=== PATIENT | male | born 1970 | race Caucasian/White ===

== ENCOUNTER 2017-05-18 07:42 | Emergency (ER) | payer OTHER ==
[2017-05-18 07:49] VITALS: BP 139/85
[2017-05-18] MEDS ORDERED: Ibuprofen TAB* 600 MG PO ONE (08:07)
--- NOTE | 2017-05-18 08:12 | UC ---
Cecy Paige Rebecca, scribed for Alvaro Dahl MD on 05/18/17 at 0801 . Back Pain HPI - HPI Summary HPI Summary: Pt is a 47 y/o M who presents to [facility] c/o lumbar back pain. Pain began last night after lifting a large, old television. Currently, pain is severe, ranked 10/10 and characterized as sharp and spasmodic. Pain is discrete to the R lumbar back with radiation to the RLQ and right inguinal region. Had not taken any medication for the pain. Sx aggravated by squatting and sitting, alleviated by nothing. Denies hematuria, dark urine and difficulty urinating. No PMHx back problems. - History of Current Complaint Chief Complaint: UCBackPain Stated Complaint: LOWER ABD/BACK PAIN Hx Obtained From: Patient Onset/Duration: Lasting Days - Started last night, Still Present Severity Initially: Moderate Severity Currently: Severe Pain Intensity: 10 Pain Scale Used: 0-10 Numeric Back Pain: Is Discrete @ - R lumbar back, Radiates To - RLQ and R inguinal region Character: Sharp, Spasmodic Alleviating: Nothing Associated Signs And Symptoms: Positive: Negative - Allergies/Home Medications Allergies/Adverse Reactions: Allergies Allergy/AdvReac Type Severity Reaction Status Date / Time tree nuts Allergy Severe anaphylaxis Uncoded 05/18/17 07:49 PMH/Surg Hx/FS Hx/Imm Hx - Additional Past Medical History Additional PMH: NEGATIVE PMHx back problems Previously Healthy: No Respiratory History: Asthma, Other Other Respiratory History: Allergies - Surgical History Surgical History: None - Family History Known Family History: Positive: Cardiac Disease - Social History Alcohol Use: Occasionally Substance Use Type: None, Marijuana Smoking Status (MU): Light Every Day Tobacco Smoker Amount Used/How Often: 1/2 ppf Household Exposure Type: Cigarettes Review of Systems Constitutional: Negative Skin: Negative Eyes: Negative ENT: Negative Respiratory: Negative Cardiovascular: Negative Gastrointestinal: Negative Genitourinary: Negative Motor: Negative Neurovascular: Negative Musculoskeletal: Other: - R lumbar back pain with radiation to the RLQ and R inguinal region Neurological: Negative Psychological: Negative All Other Systems Reviewed And Are Negative: Yes Physical Exam Triage Information Reviewed: Yes Vital Signs: Initial Vital Signs Temp 98.1 F 05/18/17 07:45 Pulse 98 05/18/17 07:45 Resp 16 05/18/17 07:45 BP 139/85 05/18/17 07:45 Pulse Ox 98 05/18/17 07:45 Vital Signs Reviewed: Yes - Additional Comments The patient is well-nourished in mild acute distress and in mild acute pain. The skin is warm and dry and skin color reflects adequate perfusion. HEENT: The head is normocephalic and atraumatic. The pupils are equal and reactive. The conjunctivae are clear and without drainage. Nares are patent and without drainage. Mouth reveals moist mucous membranes and the throat is without erythema and exudate. The external ears are intact. The ear canals are patent and without drainage. The tympanic membranes are intact. Respiratory: Chest is non-tender. Lungs are clear to auscultation and breath sounds are symmetrical and equal. Cardiovascular: Hear is regular rate and rhythm. There is no murmur or rub auscultated. There is no peripheral edema and pulses are symmetrical and equal. Musculoskeletal: Tenderness over the PSIS and pain over the sciatic notch. No CVA tenderness. Ipsilateral straight leg raising on the right. Extremities are non-tender with full range of motion. There is good capillary refill. Neurological: Patient is alert and oriented to person, place and time. The patient has symmetrical motor strength in all four extremities. Psychiatric: The patient has an appropriate affect and does not exhibit any anxiety or depression. Back Pain Course/Dx - Course Course Of Treatment: Pt is a 47 y/o M who presents to [facility] c/o R lumbar back pain with radiation to the RLQ and R inguinal regions since last night after lifting an old television. Pain is severe, ranked 10/10 and characterized as sharp and spasmodic. Had not taken any medication for the pain. Sx aggravated by squatting and sitting. Denies hematuria, dark urine and difficulty urinating. No PMHx back problems. In the [facility] course he received Motrin. He will be D/C to home with Dx of acute lumbosacral sprain and strain and sciatica with Rx for Saco 5-325, Flexeril and Motrin and a follow up referral. He understands and agrees. Patient medications reviewed this visit. - Differential Dx/Diagnosis Differential Diagnosis/HQI/PQRI: Arthritis, Herniated Disc, Strain, Sprain Provider Diagnoses: Acute lumbosacral sprain and strain. Sciatica Discharge - Discharge Plan Condition: Stable Disposition: HOME Prescriptions: Cyclobenzaprine TAB* [Flexeril 10 MG TAB*] 10 mg PO TID PRN #30 tab PRN Reason: Pain HYDROcodone/ACETAMIN 5-325 MG* [Saco 5-325 TAB*] 1 tab PO Q6H PRN #20 tab MDD 4 PRN Reason: pain Ibuprofen TAB* [Motrin TAB* 600 MG] 600 mg PO Q8H PRN #30 tab PRN Reason: pain Patient Education Materials: Lower Back Exercises (ED), Sciatica (ED) Referrals: [facility] [Outside] - 3 Days The documentation as recorded by the Cecy bellamy Rebecca accurately reflects the service I personally performed and the decisions made by , Alvaro Dahl MD.
== END 2017-05-18 08:15 | disposition home or self-care (01) ==
LOC: UCEAST 07:42
DX: S33.9XXA Sprain of unspecified parts of lumbar spine and pelvis, initial encounter (principal); X50.0XXA Overexertion from strenuous movement or load, initial encounter; Y93.89 Activity, other specified; Y92.9 Unspecified place or not applicable; Y99.9 Unspecified external cause status; Z72.0 Tobacco use
CPT/HCPCS: 99212; A9270-GY; G0463

== ENCOUNTER 2018-07-24 18:10 | Emergency (ER) | payer OTHER ==
[2018-07-24 20:27] LABS: ABS Basophils 0.1 10^3/ul (0-0.2); ABS Eosinophils 0.2 10^3/ul (0-0.6); ABS Lymphocytes 3.1 10^3/ul (1.0-4.8); ABS Monocytes 0.4 10^3/ul (0-0.8); ABS Neutrophils 4.1 10^3/ul (1.5-7.7); ABS Nucleated RBC 0 10^3/ul; Eosinophil % 2.6 % (0-6); Hematocrit 45 % (42-52); Hemoglobin 15.8 g/dl (14.0-18.0); Lymphocyte % 39.3 % (25-47); Mean Corpuscular HGB Conc 35 g/dl (31-36); Mean Corpuscular Hemoglobin 35 pg (27-31); Mean Corpuscular Volume 98 fL (80-94); Mean Platelet Volume 7.2 um3 (7.4-10.4); Nucleated Red Blood Cells % 0; Platelet Count 341 10^3/ul (150-450); Red Blood Count 4.55 10^6/ul (4.00-5.40); Red Cell Distribution Width 13 % (10.5-15)
[2018-07-24 20:43] LABS: EGFR Non-African American 120.4 (>60)
[2018-07-24] MEDS ORDERED: Nicotine Inhaler* 10 MG AMP INH ONE (20:46)
[2018-07-24] MEDS ORDERED: Mouth Piece, Nicotine* 1 EACH CARTRIDGE INH PRN (20:46)
[2018-07-24] MEDS ORDERED: Mouth Piece, Nicotine* 1 EACH CARTRIDGE ONE (20:49)
[2018-07-24 21:22] LABS: Urine Appearance Clear; Urine Blood 1+ (Negative); Urine Color Straw; Urine Ketones Negative (Negative); Urine Protein Negative (Negative); Urine Red Blood Cell Trace(0-2/hpf) (Absent); Urine Specific Gravity 1.005 (1.010-1.030); Urine Urobilinogen Negative (Negative); Urine White Blood Cell Trace(0-5/hpf) (Absent)
--- NOTE | 2018-07-24 21:53 | ED ---
Psychiatric Complaint - HPI Summary HPI Summary: Patient is a 48 y/o M w/ c/o SI BIBA as 941. [employer] officer maya Epstein 122 at [address] Calzada stating that patient had told family members that he was going to jump off of a bridge. Javier Irene, his reported father, had called 911 about patient's statements. He was reported to have been found near a bridge. It is also reported that he made suicidal statements to [employer] officers. While in room, patient refuses to have bloodwork done. Patient states that the Javier Irene is not his father but step- father. He states that he was at his house and not near a bridge. Patient reports that he did not make suicidal statements to his family but rather called them asking to take care of his dog. In room, patient is combative and demands to speak to a cargo agent. He continues to refuse to give bloodwork. On triage, pain is denied, nothing is noted to aggravate/alleviate Sx. Home medications and allergies are reviewed. 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 Timing: Constant Severity Initially: Moderate Severity Currently: None - pain denied Character: Angry Aggravating Factor(s): Nothing Alleviating Factor(s): Nothing Associated Signs And Symptoms: Positive: Hostile Has Suicidal: Reports: Thoughts, With A Plan Recent Stressor(s): has a DWI, and has to go to court on 07/29/18 - Risk Factor(s) Completed Suicide Risk Factors: Male, White Citizen Of [place] - Allergies/Home Medications Allergies/Adverse Reactions: Allergies Allergy/AdvReac Type Severity Reaction Status Date / Time tree nuts Allergy Severe anaphylaxis Uncoded 05/18/17 07:49 Home Medications: Home Medications NK [No Home Medications Reported] 07/24/18 [History Confirmed 07/24/18] PMH/Surg Hx/FS Hx/Imm Hx Previously Healthy: No Endocrine/Hematology History: Denies: Hx Diabetes, Hx Thyroid Disease Cardiovascular History: Denies: Hx Hypertension, Hx Pacemaker/ICD Respiratory History: Reports: Hx Asthma Denies: Hx Chronic Obstructive Pulmonary Disease (COPD) GI History: Denies: Hx Ulcer History: Denies: Hx Renal Disease Sensory History: Denies: Hx Hearing Aid Psychiatric History: Denies: Hx Panic Disorder - Surgical History Surgery Procedure, Year, and Place: none - Immunization History Date of Tetanus Vaccine: 2010 Date of Influenza Vaccine: none Infectious Disease History: No Infectious Disease History: Denies: Hx Hepatitis, Hx Human Immunodeficiency Virus (HIV), Traveled Outside the [place] in Last 30 Days - Family History Known Family History: Positive: Cardiac Disease, Other - NEGATIVE: FHx of SI - Social History Alcohol Use: Weekly Substance Use Type: Reports: Marijuana - occas Smoking Status (MU): Light Every Day Tobacco Smoker Amount Used/How Often: 1/2 ppf Review of Systems Negative: Fever - on vitals, temp is 97.5 F Cardiovascular: Negative Respiratory: Negative Gastrointestinal: Negative Neurological: Negative Positive: Other - SI w/ plan reported by [employer] All Other Systems Reviewed And Are Negative: Yes Physical Exam - Summary Physical Exam Summary: Appearance: Well-appearing, no pain distress, patient is tall and thin, Marfanoid body habitus Skin: Warm, color reflects adequate perfusion, dry Head: Normal Head/Face inspection, atraumatic Eyes: Conjunctiva clear ENT: Normal inspection Neck: Supple, no nodes, no JVD Respiratory: Lungs clear, normal breath sounds, no respiratory distress Cardio: RRR, No murmur, pulses normal, brisk capillary refill Abdomen: Soft, nontender Bowel sounds: Present Musculoskeletal: Strength Intact/ROM intact, no calf tenderness, no edema. Psychological: agitated Neuro: Alert, muscle tone normal, no focal deficit Triage Information Reviewed: Yes Vital Signs On Initial Exam: Initial Vitals Temp Pulse Resp BP Pulse Ox 97.5 F 78 18 122/91 94 07/24/18 18:17 07/24/18 18:17 07/24/18 18:17 07/24/18 18:17 07/24/18 18:17 Vital Signs Reviewed: Yes Diagnostics - Vital Signs Vital Signs Temp Pulse Resp BP Pulse Ox 07/24/18 18:17 97.5 F 78 18 122/91 94 - Laboratory Lab Results: Lab Results 07/24/18 07/24/18 07/24/18 Range/Units 20:18 20:18 21:09 WBC 8.0 (3.5-10.8) 10^3/ul RBC 4.55 (4.00-5.40) 10^6/ul Hgb 15.8 (14.0-18.0) g/dl Hct 45 (42-52) % MCV 98 H (80-94) fL MCH 35 H (27-31) pg MCHC 35 (31-36) g/dl RDW 13 (10.5-15) % Plt Count 341 (150-450) 10^3/ul MPV 7.2 L (7.4-10.4) um3 Neut % (Auto) 52.0 (38-83) % Lymph % (Auto) 39.3 (25-47) % Glynn % (Auto) 5.4 (0-7) % Eos % (Auto) 2.6 (0-6) % Baso % (Auto) 0.7 (0-2) % Absolute Neuts (auto) 4.1 (1.5-7.7) 10^3/ul Absolute Lymphs (auto) 3.1 (1.0-4.8) 10^3/ul Absolute Monos (auto) 0.4 (0-0.8) 10^3/ul Absolute Eos (auto) 0.2 (0-0.6) 10^3/ul Absolute Basos (auto) 0.1 (0-0.2) 10^3/ul Absolute Nucleated RBC 0 10^3/ul Nucleated RBC % 0 Sodium 140 (135-145) mmol/L Potassium 4.2 (3.5-5.0) mmol/L Chloride 107 (101-111) mmol/L Carbon Dioxide 24 (22-32) mmol/L Anion Gap 9 (2-11) mmol/L BUN 11 (6-24) mg/dL Creatinine 0.70 (0.67-1.17) mg/dL Est GFR ( Amer) 145.6 (>60) Est GFR (Non-Af Amer) 120.4 (>60) BUN/Creatinine Ratio 15.7 (8-20) Glucose 100 (70-100) mg/dL Calcium 9.1 (8.6-10.3) mg/dL Total Bilirubin 0.40 (0.2-1.0) mg/dL AST 19 (13-39) U/L ALT 15 (7-52) U/L Alkaline Phosphatase 59 (34-104) U/L Total Protein 7.3 (6.4-8.9) g/dL Albumin 4.8 (3.2-5.2) g/dL Globulin 2.5 (2-4) g/dL Albumin/Globulin Ratio 1.9 (1-3) TSH 2.74 (0.34-5.60) mcIU/mL Urine Color Straw Urine Appearance Clear Urine pH 5.0 (5-9) Ur Specific [place] 1.005 L (1.010-1.030) Urine Protein Negative (Negative) Urine Ketones Negative (Negative) Urine Blood 1+ A (Negative) Urine Nitrate Negative (Negative) Urine Bilirubin Negative (Negative) Urine Urobilinogen Negative (Negative) Ur Leukocyte Esterase Negative (Negative) Urine WBC (Auto) Trace(0-5/hpf) (Absent) Urine RBC (Auto) Trace(0-2/hpf) (Absent) Ur Squamous Epith Cells Present A (Absent) Urine Bacteria Absent (Absent) Urine Glucose Negative (Negative) Salicylates < 2.50 (<30) mg/dL Urine Opiates Screen (None Detect) Acetaminophen < 15 mcg/mL Ur Barbiturates Screen (None Detect) Ur Phencyclidine Scrn (None Detect) Ur Amphetamines Screen (None Detect) U Benzodiazepines Scrn (None Detect) Urine Cocaine Screen (None Detect) U Cannabinoids Screen (None Detect) Serum Alcohol 243 H (<10) mg/dL 07/24/18 Range/Units 21:12 WBC (3.5-10.8) 10^3/ul RBC (4.00-5.40) 10^6/ul Hgb (14.0-18.0) g/dl Hct (42-52) % MCV (80-94) fL MCH (27-31) pg MCHC (31-36) g/dl RDW (10.5-15) % Plt Count (150-450) 10^3/ul MPV (7.4-10.4) um3 Neut % (Auto) (38-83) % Lymph % (Auto) (25-47) % Glynn % (Auto) (0-7) % Eos % (Auto) (0-6) % Baso % (Auto) (0-2) % Absolute Neuts (auto) (1.5-7.7) 10^3/ul Absolute Lymphs (auto) (1.0-4.8) 10^3/ul Absolute Monos (auto) (0-0.8) 10^3/ul Absolute Eos (auto) (0-0.6) 10^3/ul Absolute Basos (auto) (0-0.2) 10^3/ul Absolute Nucleated RBC 10^3/ul Nucleated RBC % Sodium (135-145) mmol/L Potassium (3.5-5.0) mmol/L Chloride (101-111) mmol/L Carbon Dioxide (22-32) mmol/L Anion Gap (2-11) mmol/L BUN (6-24) mg/dL Creatinine (0.67-1.17) mg/dL Est GFR ( Amer) (>60) Est GFR (Non-Af Amer) (>60) BUN/Creatinine Ratio (8-20) Glucose (70-100) mg/dL Calcium (8.6-10.3) mg/dL Total Bilirubin (0.2-1.0) mg/dL AST (13-39) U/L ALT (7-52) U/L Alkaline Phosphatase (34-104) U/L Total Protein (6.4-8.9) g/dL Albumin (3.2-5.2) g/dL Globulin (2-4) g/dL Albumin/Globulin Ratio (1-3) TSH (0.34-5.60) mcIU/mL Urine Color Urine Appearance Urine pH (5-9) Ur Specific [place] (1.010-1.030) Urine Protein (Negative) Urine Ketones (Negative) Urine Blood (Negative) Urine Nitrate (Negative) Urine Bilirubin (Negative) Urine Urobilinogen (Negative) Ur Leukocyte Esterase (Negative) Urine WBC (Auto) (Absent) Urine RBC (Auto) (Absent) Ur Squamous Epith Cells (Absent) Urine Bacteria (Absent) Urine Glucose (Negative) Salicylates (<30) mg/dL Urine Opiates Screen None detected (None Detect) Acetaminophen mcg/mL Ur Barbiturates Screen None detected (None Detect) Ur Phencyclidine Scrn None detected (None Detect) Ur Amphetamines Screen None detected (None Detect) U Benzodiazepines Scrn None detected (None Detect) Urine Cocaine Screen None detected (None Detect) U Cannabinoids Screen None detected (None Detect) Serum Alcohol (<10) mg/dL Result Diagrams: 07/24/18 20:18 07/24/18 20:18 Lab Statement: Any lab studies that have been ordered have been reviewed, and results considered in the medical decision making process. Re-Evaluation - Re-Evaluation First Eval Re-Evaluation Time: 20:10 Change: Improved Comment: Patient has agreed to give blood at this time. Attempted to enter room but patient is still agitated and states that his rights are not being respected. Nicotine inhaler will be given, remains 1-1 watch with security present. Second Eval Re-Evaluation Time: 21:31 Comment: Patient's legal rights were discussed. He was told his serum alc was 243 and that he would need to wait until around 0400 until he is sober enought to receive MHE. Patient continues to express his frustation at "being held against my will" as well as his inability to refuse UA and bloodwork but later apologizes for being difficult earlier. He denies having a PCP and PSHx. He denies any other medical problems. He smokes cigarettes, reports marijuana usage , does not want to answer questions about alc consumption. He states he called his parents today wanting them to take care of his dog as he has an upcoming trial for a DUI in five days. He denies SI at present and denies ever expressing SI. Course/Dx - Course Course Of Treatment: Patient is a 48 y/o M w/ c/o SI BIBA as 941. [employer] officer maya Epstein 122 at [address] Calzada stating that patient had told family members that he was going to jump off of a bridge. Javier Irene, his reported father, had called 911 about patient's statements. He was reported to have been found near a bridge. It is also reported that he made suicidal statements to [employer] officers. While in room, patient refuses to have bloodwork done. Patient states that the Javier Irene is not his father but step-father. He states that he was at his house and not near a bridge. Patient reports that he did not make suicidal statements to his family but rather called them asking to take care of his dog. In room, patient is combative and demands to speak to a cargo agent. He continues to refuse to give bloodwork. 2009 - Patient has agreed to give blood at this time. Attempted to enter room but patient is still agitated and states that his rights are not being respected. Nicotine inhaler will be given, remains 1-1 watch with security present. Patient was given nicotine inhaler, 10 mg. Tox showed serum alc of 243. UA showed urine blood 1+, squamous epith cells as present, no bacteria, no glucose. Labs showed TSH 2.74, WBC 8. 2131 - Patient's legal rights were discussed. He was told his serum alc was 243 and that he would need to wait until around 0400 until he is sober enought to receive MHE. Patient continues to express his frustation at "being held against my will" as well as his inability to refuse UA and bloodwork but later apologizes for being difficult earlier. He denies having a PCP and PSHx. He denies any other medical problems. He smokes cigarettes, reports marijuana usage, does not want to answer questions about alc consumption. He states he called his parents today wanting them to take care of his dog as he has an upcoming trial for a DUI in five days. He denies SI at present and denies ever expressing SI. Physical exam showed patient is tall and thin, Marfanoid body habitus. Patient will be signed out to Dr. Robledo pending patient sobering up for MHE. Dx of SI and alcohol intoxication. - Differential Dx/Clinical Impression Differential Diagnosis/HQI/PQRI: Positive: Alcohol Intoxication, Anxiety, Bipolar Disorder, Depression, Suicidal Ideation Provider Diagnosis: Suicidal ideation, Alcohol intoxication Discharge - Sign-Out/Discharge Documenting (check all that apply): Sign-Out Patient Signing out patient TO: Caitie Robledo - 07/24/18 at 23:00 Receiving patient FROM: Berta Calzada - Discharge Plan - Attestation Statements Document Initiated by Scribe: Yes Documenting Scribe: Wesly Rosa Provider For Whom Scribe is Documenting (Include Credential): Berta Calzada MD Scribe Attestation: Wesly Paige , scribed for Berta Calzada MD on 07/24/18 at 2247. Scribe Documentation Reviewed: Yes Provider Attestation: The documentation as recorded by the scribe, Wesly Rosa accurately reflects the service I personally performed and the decisions made by me, Berta Calzada MD
--- NOTE | 2018-07-25 01:43 | ED ---
Progress - Progress Note Progress Note: Receiving sign out from Dr. Calzada, pending sobriety for MHE. Pt will be signed out to Dr. Paul, pending MHE. Discharge - Sign-Out/Discharge Documenting (check all that apply): Sign-Out Patient, Receiving Sign-Out Signing out patient TO: Charles Paul Receiving patient FROM: Berta Calzada - Discharge Plan Referrals: No Primary Care Phys,NOPCP [Primary Care Provider] - - Attestation Statements Document Initiated by Scribe: Yes Documenting Scribe: Justyna Vasquez Provider For Whom Scribe is Documenting (Include Credential): Caitie Robledo MD Scribe Attestation: IJustyna, scribed for Caitie Robledo MD on 07/25/18 at 0542.
--- NOTE | 2018-07-25 10:30 | ED ---
Progress - Progress Note Progress Note: Receiving sign out from Dr. Calzada, pending sobriety for MHE. Pt will be signed out to Dr. Paul, pending MHE. Receiving sign out from Dr. Robledo. Pt was assessed by Dr. London, NADINE, and recommended discharge home with out patient follow up. - Consult/PCP Time Called: 07:00 Re-Evaluation - Re-Evaluation First Eval Re-Evaluation Time: 20:10 Change: Improved Comment: Patient has agreed to give blood at this time. Attempted to enter room but patient is still agitated and states that his rights are not being respected. Nicotine inhaler will be given, remains 1-1 watch with security present. Second Eval Re-Evaluation Time: 21:31 Comment: Patient's legal rights were discussed. He was told his serum alc was 243 and that he would need to wait until around 0400 until he is sober enought to receive MHE. Patient continues to express his frustation at "being held against my will" as well as his inability to refuse UA and bloodwork but later apologizes for being difficult earlier. He denies having a PCP and PSHx. He denies any other medical problems. He smokes cigarettes, reports marijuana usage , does not want to answer questions about alc consumption. He states he called his parents today wanting them to take care of his dog as he has an upcoming trial for a DUI in five days. He denies SI at present and denies ever expressing SI. Course/Dx - Course Course Of Treatment: Patient is a 48 y/o M w/ c/o SI BIBA as 941. [employer] officer maya Epstein 122 at [address] Calzada stating that patient had told family members that he was going to jump off of a bridge. Javier Irene, his reported father, had called 911 about patient's statements. He was reported to have been found near a bridge. It is also reported that he made suicidal statements to [employer] officers. While in room, patient refuses to have bloodwork done. Patient states that the Javier Irene is not his father but step-father. He states that he was at his house and not near a bridge. Patient reports that he did not make suicidal statements to his family but rather called them asking to take care of his dog. In room, patient is combative and demands to speak to a business banking relationship manager. He continues to refuse to give bloodwork. 2009 - Patient has agreed to give blood at this time. Attempted to enter room but patient is still agitated and states that his rights are not being respected. Nicotine inhaler will be given, remains 1-1 watch with security present. Patient was given nicotine inhaler, 10 mg. Tox showed serum alc of 243. UA showed urine blood 1+, squamous epith cells as present, no bacteria, no glucose. Labs showed TSH 2.74, WBC 8. 2131 - Patient's legal rights were discussed. He was told his serum alc was 243 and that he would need to wait until around 0400 until he is sober enought to receive MHE. Patient continues to express his frustation at "being held against my will" as well as his inability to refuse UA and bloodwork but later apologizes for being difficult earlier. He denies having a PCP and PSHx. He denies any other medical problems. He smokes cigarettes, reports marijuana usage, does not want to answer questions about alc consumption. He states he called his parents today wanting them to take care of his dog as he has an upcoming trial for a DUI in five days. He denies SI at present and denies ever expressing SI. Physical exam showed patient is tall and thin, Marfanoid body habitus. Patient will be signed out to Dr. Robledo pending patient sobering up for MHE. Dx of SI and alcohol intoxication. Pt was assessed by Dr. London, NADINE, and recommended discharge home with out patient follow up. Diagnosis of substance abuse and DWI. Discharge - Sign-Out/Discharge Documenting (check all that apply): Patient Departure - Discharge Plan Condition: Stable Disposition: HOME Patient Education Materials: Alcohol Intoxication (ED), Anxiety (ED), Alcohol Dependence (ED), Alcohol Use Disorder (ED) Referrals: No Primary Care Phys,NOPCP [Primary Care Provider] - - Billing Disposition and Condition Condition: STABLE Disposition: Home - Attestation Statements Scribe Documentation Reviewed: Yes
[2018-07-25 11:22] VITALS: BP 136/92
== END 2018-07-25 11:15 | disposition home or self-care (01) ==
LOC: ED 18:10
DX: R45.851 Suicidal ideations (principal); F10.129 Alcohol abuse with intoxication, unspecified; Z91.018 Allergy to other foods; F17.200 Nicotine dependence, unspecified, uncomplicated
CPT/HCPCS: 36415; 80053; 80307; 80320; 80329; 81003; 81015; 84443; 85025; 87086; 99285; A9270-GY; G0480